=== PATIENT | female | born 1980 | race African-American/Black ===

== ENCOUNTER 2020-10-20 07:28 | Day surgery (SDC) | payer OTHER ==
[~2020-10-20] VITALS: Ht 160 cm; Wt 69.8 kg
[2020-10-20 07:53] VITALS: BP 101/64
[2020-10-20 11:20] VITALS: BP 110/66
== END 2020-10-20 11:25 ==
LOC: DS 07:28
PROVIDERS: ATTEND Internal Medicine Gastroenterology
DX: R13.10 Dysphagia, unspecified (principal); K20.0 Eosinophilic esophagitis; K21.9 Gastro-esophageal reflux disease without esophagitis; Z79.82 Long term (current) use of aspirin
CPT/HCPCS: 43235; J1200; J1610; J2250; J2310; J3010; J3490